=== PATIENT | female | born 1975 | race Caucasian/White ===

== ENCOUNTER 2020-03-09 10:09 | Outpatient (CLI) | payer OTHER, SELFPAY ==
[2020-03-10 19:47] LABS: SARS-CoV-2 RNA PCR Negative
== END 2020-03-09 10:10 | disposition home or self-care (01) ==
PROVIDERS: PCP Internal Medicine; Visit Provider Internal Medicine
DX: Z20.828 Contact with and (suspected) exposure to other viral communicable diseases (principal)
CPT/HCPCS: 87635; C9803; U0003

== ENCOUNTER 2022-09-06 12:00 | Outpatient (CLI) | payer OTHER, SELFPAY ==
--- NOTE | ~2022-09-06 | CT_ITS ---
Non-contrast CT scan of the Abdomen and Pelvis Clinical indication: Painful urination Technique: 2.5 mm axial scans were obtained through the abdomen and pelvis without intravenous or or al contrast. Dose reduction technique was used on this scan by utilizing automated exposure control a nd iterative reconstruction technique. The dose-length product (DLP) was 173.05 mGy-cm. COMPARISON: 08/31/2016 Findings: Images through the lung bases reveal no abnormalities. Both kidneys are somewhat malrotated. Right renal cyst present. There are multiple nonobstructing lef t renal stones measuring up to 7 mm. No definite hydronephrosis. No definite ureteral stones seen. The liver, spleen, pancreas, and adrenals appear normal. Cholecystectomy clips are present. There is no aortic aneurysm. There is no evidence of bowel obstruction. Images through the pelvis were performed. There is no evidence of ascites or lymphadenopathy. Urinary bladder unremarkable. No adnexal mass evident. No ascites. 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 Nonobstructing left renal stones. No hydronephrosis. Reviewed, dictated and finalized at [facility] [place]. 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 Non obstructing left renal stones. No hydronephrosis.
== END 2022-09-06 12:01 | disposition home or self-care (01) ==
LOC: CHSIMG 12:04
PROVIDERS: PCP Internal Medicine; Visit Provider Nurse Practitioner Family
DX: M54.50 Low back pain, unspecified (principal); N20.0 Calculus of kidney; R30.0 Dysuria
CPT/HCPCS: 74176

== ENCOUNTER 2022-10-22 19:21 | Emergency (ER) | payer OTHER, SELFPAY ==
[2022-10-22 19:30] VITALS: BP 115/73; PULSE 81; RESP 14; TEMP 36.4; O2SAT 97
--- NOTE | 2022-10-22 19:33 | ED.WOUNDLAC ---
HPI - Wound/Laceration General Chief Complaint: Wound/Laceration Stated Complaint: Laceration on left index finger Time Seen by Provider: 10/22/22 19:33 Source: patient Mode of arrival: ambulatory Limitations: no limitations History of Present Illness HPI narrative: patient presents with an avulsion injury to the tip of her left index finger while she was cutting fabric, there is no other injuries no numbness or tingling as good range of motion patient states that she is up-to-date with her tetanus. Onset (ago): hour(s) Extremity Location: Left: hand ( Avulsion injury to her left index finger) Place: home Patient tetanus UTD: Yes Context: accidental Related Data Home Medications Medication Instructions Recorded Confirmed No Home Medications 10/22/22 10/22/22 Allergies Allergy/AdvReac Type Severity Reaction Status Date / Time No Known Allergies Allergy Verified 10/22/22 19:29 Review of Systems Review of Systems: All systems reviewed & are unremarkable except as noted in HPI and below PMFSH Past Medical History Medical History Patient denies medical problems Family History Family History Other Diabetes mellitus Family history of elevated blood lipids Hypertension Social History Social History Smoking status: Never smoker Alcohol intake: current Exam Const: General: healthy appearing Nutritional Appearance: well nourished Orientation/consciousness: patient oriented x3 Limitations: no limitations Eyes: Conjunctivae: conjunctivae normal Neck: Neck: normal visual inspection Resp: Effort & Inspection: normal respiratory effort Auscultation: clear to auscultation bilaterally Cardio: Rate: regular rate Rhythm: regular rhythm Skin: Wounds: wounds noted Other: small avulsion injury to the tip of her left index finger Neuro: General: patient oriented x3 and moves all extremities Extrem: General: normal to inspection Psych: Mental Status: mental status grossly normal Affect: normal affect Course Course Emergency Course: gauze applied to stop bleeding, the wound was irrigated and cleaned. Critical Care Time Critical Care Time Critical Care Time: No Discharge Plan Discharge Clinical Impression: Avulsion of skin Patient Disposition: Home, Self-Care Condition: Stable Instructions: Antibiotic Form, Skin Avulsion (ED) Additional Instructions: Continue dressing and follow with primary if symptoms persist or worsen. Prescriptions: No Action No Home Medications Follow-up/Referrals: John Rush MD [Primary Care Provider] - Time of Disposition: 19:36
--- NOTE | 2022-10-22 19:47 | PC.NURSE ---
Pt holding pressure with gauze. No active bleeding noted to gauze at this time. If bleeding should continue will place Surgicel dressing and wrap.
--- NOTE | 2022-10-22 20:03 | PC.NURSE ---
Wound remains with minimal active bleeding. Wound cleansed with dermal wound cleanser. Surgicel and gauze applied. Coban dressing applied and direct pressure applied.
--- NOTE | 2022-10-22 20:23 | PC.NURSE ---
Wound continues to have minimal blood through dressing. Per ERP reapply new Surgicel dressing and rewrap with Coban and evaluate in 15-20 minutes. Dressing applied as directed. Hand elevated. Pt tolerating well and voices no new needs or complaints.
--- NOTE | 2022-10-22 20:47 | PC.NURSE ---
No active bleeding noted to gauze dressing. Coban removed and tape applied. Pt verbalized understanding of direct pressure application if bleeding/oozing should return and to return if unable to stop bleeding with direct pressure application. Pt verbalized understanding.
== END 2022-10-22 20:49 | disposition home or self-care (01) ==
PROVIDERS: Emergency Provider Emergency Medicine; PCP Internal Medicine
DX: S61.211A Laceration without foreign body of left index finger without damage to nail, initial encounter (principal); W45.8XXA Other foreign body or object entering through skin, initial encounter
CPT/HCPCS: 99282

== ENCOUNTER 2023-12-21 15:25 | Outpatient (CLI) | payer OTHER, SELFPAY ==
--- NOTE | ~2023-12-21 | CT_ITS ---
EXAMINATION: CT abdomen pelvis wo con DATE: 12/21/2023 15:37 INDICATION: Hematuria. Kidney stones. TECHNIQUE: Computed tomography (CT) of the abdomen and pelvis was performed without intravenous contr ast. Automated exposure control and iterative reconstruction technique were employed. The dose-length product was 296.68 mGy-cm. COMPARISON: CT abdomen and pelvis 09/06/2022 FINDINGS: The visualized portions of the lung bases demonstrate minimal atelectasis. No pleural effus ion. The heart size is normal. No pericardial effusion. The liver and spleen are normal. There are ch anges of cholecystectomy. The pancreas and adrenal glands are normal. There is fusion of the inferior poles of the kidneys across the midline (horseshoe kidney). There is a 5 mm stone in right kidney. T here is a 2.9 cm cyst in right kidney. There are approximately 5 stones in left kidney measuring up t o 5 mm. There is diverticulosis of the colon without evidence of diverticulitis. There are no dilated loops of bowel. The appendix is normal. There are no pathologically enlarged lymph nodes. There is n o free intraperitoneal fluid. There is mild lumbar spondylosis. There is thoracolumbar dextroscoliosi s. IMPRESSION: 1. Bilateral nonobstructing kidney stones. 2. Horseshoe kidney. Reviewed, dictated and finalized at location A.
== END 2023-12-21 15:26 ==
PROVIDERS: PCP Internal Medicine; Visit Provider Internal Medicine
DX: N20.0 Calculus of kidney (principal); R31.9 Hematuria, unspecified; Q63.1 Lobulated, fused and horseshoe kidney
CPT/HCPCS: 74176

== ENCOUNTER 2024-07-08 07:52 | Outpatient (CLI) | payer OTHER, SELFPAY ==
--- NOTE | ~2024-07-08 | MM_ITS ---
EXAMINATION: MM screening naveen BI w ekta HISTORY: Screening TECHNIQUE: Craniocaudal and mediolateral oblique 3-D tomosynthesis images were obtained and synthetic 2-D images were generated. CAD analysis was submitted and interpreted. COMPARISON: Comparison to multiple prior studies sequentially, with oldest reviewed study dated 01/22. BREAST PARENCHYMAL COMPOSITION: Dense: The breasts are extremely dense, which lowers the sensitivity of mammography. FINDINGS: There is no evidence of suspicious mass, calcification, or architectural distortion to sugg est malignancy in either breast. There has been no suspicious interval change. IMPRESSION: 1. No mammographic evidence of malignancy. 2. Recommend routine screening mammography in one year. BI-RADS Category 1: Negative Reviewed, dictated and finalized at location B.
--- NOTE | ~2024-07-08 | DEXA_ITS ---
Bone Density Report Name: MIMI COTTON Age: 49 Sex: Female Ethnicity: White Date of : 1975 Indication: postmenopausal; Referring Provider: John Rush Study: Bone densitometry was performed. Exam Date: July 08, 2024 Accession number: [id number] Bone Density: Region BMD T-score Z-score Classification AP Spine(L1-L4) 1.055 0.1 0.7 Normal Femoral Neck (Left) 0.735 -1.0 -0.4 Normal Total Hip (Left) 0.944 0.0 0.4 Normal Femoral Neck (Right) 0.733 -1.0 -0.4 Normal Total Hip (Right) 0.865 -0.6 -0.2 Normal Femoral Neck Mean 0.734 -1.0 -0.4 Normal Total Hip Mean 0.904 -0.3 0.1 Normal World Health Organization criteria for BMD impression classify patients as: Normal (T-score at or above -1.0), Osteopenia (T-score between -1.0 and -2.5), or Osteoporosis (T-score at or below -2.5). 10-year Fracture Risk: FRAX not reported because: All T-scores for Spine Total, Hip Total, Femoral Neck at or above -1.0 Clinical Information Provided by Patient: Has used the following medications: Vitamin D Patient maximum height was 66 Menopause Age: 49 No regular weight bearing exercise Does not regularly consume dairy products Drinks caffeinated beverages Onset of menses at age 10 Number of children 3 Impression: The patient has normal bone mass. Discussion: BONE DENSITY IS ABOVE THE MINIMUM DESIRABLE LEVEL AT ALL SKELETAL SITES TESTED. This patient?s bone mineral density is above the minimum desirable level (T-score -1.0 or better) at all sites measured. The patient should follow a healthful lifestyle (good nutrition with adequate calcium and vitamin D, and appropriate weight-bearing exercise). Follow-Up: Consider repeating this study in 5 years or sooner if there is some new clinical indication. Reported by: ARPITA on 07/08/2024 8:26:00 AM. Reviewed, dictated and finalized at location A.
--- OUTSIDE RECORDS SUMMARY | 2024-07-08 07:59 | XMS_ITS | Clinical Summary ---
Author Organization [facility] Address [address] [place] [address] Phone Care Team Providers Care Nuclear Medicine Medical Director Name Role Phone John Rush MD Primary Care Provider + Allergies No known active allergies Medications multivitamin (DAILY-IVANA) tablet Take 1 Tablet by mouth daily. Active MAGNESIUM CITRATE ORAL Take 200 mg by mouth daily. Active drospirenone, contraceptive, (Slynd) 4 mg (28) Tablet Take 1 Tablet (4 mg) by mouth daily. 84 Tablet 3 06/25/2024 Active Active Problems Problem Noted Date Diagnosed Date 11/03/12 11/03/2012 ROR 10/20/2012 Resolved Problems Problem Noted Date Diagnosed Date Resolved Date Labor, GBS-, [id number], no epi, O+ 11/02/2012 11/03/2012 Encounters Date Type Department Care Team Description 07/02/2024 External Device Data ST[facility] ABSTRACTION Provider, Abstract 07/02/2024 External Device Data [facility] ABSTRACTION Provider, Abstract 06/29/2024 External Device Data ST[facility] ABSTRACTION Provider, Abstract 06/28/2024 External Device Data STL ABSTRACTION Provider, Abstract 06/25/2024 2:30 PM LEATHER SHAVER Office Visit [facility] - [address] [address] Ashley Gutierrez DO Dysmenorrhea (Primary Dx); Irregular menses; Persistent sadness; Encounter for BCP ( control pills) initial prescription 06/25/2024 2:00 PM LEATHER SHAVER Ancillary Procedure [address] [address] Ashley Gutierrez, Abnormal uterine bleeding (AUB) 06/25/2024 External Device Data STL ABSTRACTION Provider, Abstract 06/11/2024 External Device Data STL ABSTRACTION Provider, Abstract 05/16/2024 External Device Data STL ABSTRACTION Provider, Abstract 05/15/2024 External Device Data STL ABSTRACTION Provider, Abstract 05/14/2024 External Device Data STL ABSTRACTION Provider, Abstract 05/14/2024 External Device Data STL ABSTRACTION Provider, Abstract 05/11/2024 Results Follow-Up [place] [id number] Ashley Gutierrez DO POC , URINE, CERV/VAG CYTO AGE BASED SCREEN PAP, PATHOLOGY 05/07/2024 11:15 AM LEATHER SHAVER Office Visit [address] [address] Alma Neville, ARTHUR Abnormal uterine bleeding (AUB) (Primary Dx); Screening for cervical cancer 05/07/[address] [address] Ashley Gutierrez DO 05/07/[address] [address] Ashley Gutierrez DO 05/07/[address] [address] Ashley Gutierrez, from Last 3 Months Family History Medical History Relation Name Comments Healthy Brother Hypertension Brother Alcohol abuse Father Healthy Father Heart Attack Father Diabetes Maternal Grandfather Diabetes Maternal Grandmother Hypertension Maternal Grandmother Coronary Artery Disease Maternal Uncle Healthy Mother Diabetes Other grandma and unc le Diabetes Paternal Grandmother Hypertension Paternal Grandmother Relation Name Status Comments Brother Father Maternal Grandfather Maternal Grandmother Maternal Uncle Mother Other Paternal Grandmother Social History Tobacco Use Types Packs/Day Years Used Date Smoking Tobacco: Never Smokeless Tobacco: Never Tobacco Cessation:Counseling Given: Not Answered Alcohol Use Standard Drinks/Week Comments Yes 0 (1 standard drink = 0.6 oz pur e alcohol) socially Comments No Sex and Gender Information Value Date Recorded Sex Assigned at Female 05/03/2024 10:54 AM LEATHER SHAVER Legal Sex Female 1:51 PM CDT Gender Identity Female 05/03/2024 10:54 AM LEATHER SHAVER Sexual Orientation Not on file Occupation Industry Job Start Date Job End Date Not on file Not on file Not on file Not on file Last Filed Vital Signs Vital Sign Reading Time Taken Comments Blood Pressure 120/64 06/25/2024 2:30 PM LEATHER SHAVER Pulse 76 05/06/2019 3:59 PM LEATHER SHAVER Temperature 36.7 C (98 F) 09/10/2020 3:31 PM CDT Respiratory Rate 16 05/06/2019 3:59 PM LEATHER SHAVER Oxygen Saturation 98% 11/03/2012 8:00 AM CDT Inhaled Oxygen Concentration - - Weight 67.9 kg (149 lb 12.8 oz) 06/25/2024 2:30 PM LEATHER SHAVER Height 167.6 cm (5' 6 ) 05/07/2024 11:2 9 AM LEATHER SHAVER Body Mass Index 24.18 05/07/2024 11:29 AM LEATHER SHAVER Plan of Treatment Upcoming Encounters Date Type Department Care Team (Late st Contact Info) Description 07/08/2025 10:30 AM CDT Office Visit [facility] - [address] [place] [phone] [place] [address] [facility] [address] [place] [address] Health Maintenance Due Date Last Done Comments DTAP/TDAP/TD VACCINES (1 - Tdap) 1995 HEPATITIS B VACCINES (1 of 3 - 19+ 3-dose series) 1995 BREAST CANCER SCREENING 2016 COLORECTAL SCREENING 2021 Colorectal Cancer Screening 2021 FIT-DNA Q 3 years 2021 FIT/FOBT Q 1 year 2021 Flex Sig/CT Colonography Q 5 years 2021 INFLUENZA VACCINE (#1) 2023 Preventative Visit- Commercial 04/24/2024 09/10/2020 , 11/13/2018 CERVICAL CANCER SCREENING 05/07/2027 05/07/2024, Procedures Procedure Name Priority Date/Time Associated Diagnosis Comments US PELVIC TRANSVAGINAL Routine 06/25/2024 2:22 PM LEATHER SHAVER Abnormal uterine bleeding (AUB) PATHOLOGY Routine 05/07/2024 12:06 PM LEATHER SHAVER Abnormal uterine bleeding (AUB) CERV/VAG CYTO AGE BASED SCREEN PAP Routine 05/07/2024 12:06 PM LEATHER SHAVER Screening for cervical cancer POC , URINE Routine 05/07/2024 12:05 PM LEATHER SHAVER Abnormal uterine bleeding (AUB) VT ENDOMETRIAL BX W/WO ENDOCERVIX BX W/O DILAT SPX Routine 05/07/2024 11:15 AM LEATHER SHAVER Abnormal uterine bleeding (AUB) Screening for cervical cancer from Last 3 Months Results * US PELVIC TRANSVAGINAL (06/25/2024 2:22 PM LEATHER SHAVER) Anatomical Region Laterality Modality Pelvis Ultrasound 06/25/2024 2:05 PM LEATHER SHAVER Narrative 06/27/2024 7:28 AM LEATHER SHAVER CLINIC PELVIC ULTRASOUND ----- Pat. Name: SYL COTTON Study Date: 06/25/2024 2:05pm Pat. NO: [id number] Referring MD: ASHLEY GUTIERREZ DO Site: [place] [address] [address] Cutter: Lacey Tucker RDMS : 1975 Age: 49 ----- INDICATION ----- Dysfunctional Uterine Bleeding (DUB) CODING ----- Diagnoses N93.8: Other specified abnormal uterine and vaginal bleeding Procedures 62434: Ultrasound non OB transvaginal ASSESSMENT ----- LMP on 06/14/2024. Day of cycle 12 METHOD ----- Transvaginal ultrasound examination UTERUS ----- Long 80 mm x ap 40 mm x tr 59 mm. Vol 97.3 cm Position: anteverted Malformations: arcuate uterus Myometrium: heterogeneous, suspicious for adenomyosis Endometrium: normal . Endometrial thickness, total 3.8 mm Cervix details: contains cystic lesions identified suggesting superficial Nabothian cysts RIGHT OVARY ----- appears normal in size, shape, structure and morphology. Size 18 mm x 7 mm x 11 mm. Vol 0.8 cm LEFT OVARY ----- appears normal in size, shape, structure and morphology. Size 19 mm x 15 mm x 14 mm. Vol 2.1 cm CUL DE SAC ----- No free fluid is seen IMPRESSION ----- Uterus is anteverted, appears arcuate and measures 80 x 40 x 59 mm The myometrium appears heterogeneous suggesting adenomyosis The left uterine vessels appear dilated The endometrium measures 3.8 mm and appears normal The cervix contains Nabothian cysts Right Ovary appears normal in size, shape, structure and morphology Left Ovary appears normal in size, shape, structure and morphology Posterior cul de sac: No free fluid is seen Procedure Note Ashley Gutierrez DO - 06/27/2024 CLINIC PELVIC ULTRASOUND ----- Pat. Name:Anisa COTTON Date:06/25/2024 2:05pm Pat. NO: [id number] MD:ASHLEY GUTIERREZ DO Site:[place] [address] [place] [address]Sonographer:Lacey Tucker RDMS :1975Age:49 ----- INDICATION ----- Dysfunctional Uterine Bleeding (DUB) CODING ----- Diagnoses N93.8: Other specified abnormal uterine andvaginal bleeding Procedures [id number]: Ultrasound non OB transvaginal ASSESSMENT ----- LMP on 06/14/2024. Day of cycle 12 METHOD ----- Transvaginal ultrasound examination UTERUS ----- Long 80 mm x ap 40 mm x tr 59 mm. Vol 97.3 cm Position: anteverted Malformations: arcuate uterus Myometrium: heterogeneous, suspicious for adenomyosis Endometrium: normal . Endometrial thickness, total 3.8 mm Cervix details: contains cystic lesions identified suggesting superficial Nabothian cysts RIGHT OVARY ----- appears normal in size, shape, structure and morphology. Size 18 mm x 7 mm x 11 mm. Vol 0.8 cm LEFT OVARY ----- appears normal in size, shape, structure and morphology. Size 19 mm x 15 mm x 14 mm. Vol 2.1 cm CUL DE SAC ----- No free fluid is seen IMPRESSION ----- Uterus is anteverted, appears arcuate and measures 80 x 40 x 59 mm The myometrium appears heterogeneous suggesting adenomyosis The left uterine vessels appear dilated The endometrium measures 3.8 mm and appears normal The cervix contains Nabothian cysts Right Ovary appears normal in size, shape, structure and morphology Left Ovary appears normal in size, shape, structure and morphology Posterior cul de sac: No free fluid is seen us Ashley Gutierrez DO US ORDERABLES Final Resul t * CERV/VAG CYTO AGE BASED SCREEN PAP (05/07/2024 12:06 PM LEATHER SHAVER) COMMENT (PAP): [facility] [place] Comment: This order for age-based cervical cancer and STI screening follows ACOG guidelines(PB 168, 140, RYJ015). See individual assays for performing site location. CLINICAL INFORMATION [facility] [place] Comment:None given LAST MENSTRUAL PERIOD [facility] [place] Comment:04/24/2024 PREV PAP: [facility] [place] Comment:NONE GIVEN PREV BX: [facility] [place] Comment:NONE GIVEN SOURCE [facility] Comment:Endocervix ADEQUACY: [facility] [place] Comment: Satisfactory for evaluation. Endocervical/transformation zone component present. PAP INTERP [facility] [place] Comment: Cytology Results: Negative for intraepithelial lesion or malignancy. COMMENT (PAP TEST) [facility] [place] Comment: This Pap test has been evaluated with computer assisted technology. BLIND SLAT STAPLING MACHINE OPERATOR: Johnathon [facility] [place] Comment: KHARI, CT(ASCP) CT screening location: [place] [address] [place] [address] EXPLANATORY NOTE [facility] [place] Comment: EXPLANATORY NOTE: The Pap is a screening test for cervical cancer. It is not a diagnostic test and is subject to false negative and false positive results. It is most reliable when a satisfactory sample, regularly obtained, is submitted with relevant clinical findings and history, and when the Pap result is evaluated along with historic and current clinical information. HPV E6/E7 Not Detected Not Detected [facility] [place] Comment: Methodology: Barber Shop Manager-Mediated Amplification This assay detects E6/E7 viral messenger RNA (mRNA) from 14 high-risk HPV types (16,18,31,33,35,39,45,51,52,56,58,59,66,68). Cervical sources are required for HPV testing. If a vaginal source from a patient who has had a total hysterectomy with removal of cervix was submitted, please contact the testing laboratory for alternative testing options. For additional information, please refer to http://education.[employer]/faq/SSB606g1 (This link if provided for information/ educational purposes only.) Test Performed at: [facility] [address] [address] Lio [place] Genital SWAB OF ENDOCERVIX / Unknown 05/07/2024 12:06 PM LEATHER SHAVER 05/08/2024 1:14 AM LEATHER SHAVER Alma Neville NP PATHOLOGY/CYTOLOGY ORDERABLES Final Result Performing Organization Address [facility] Co de Phone Number [facility] [phone] [facility] [address] [address] * PATHOLOGY (05/07/2024 12:06 PM LEATHER SHAVER) CLINICAL INFORMATION [facility] Comment:AUB PATHOLOGIST [facility] Comment: Willie Orellana M.D., Board Certified in Anatomic Pathology and Clinical Pathology. (electronic signature) PATH A SOURCE [facility] Comment:Endometrium, biopsy PATH A GROSS DESCR [facility] Comment: Specimen is received in 10% neutral buffered formalin, labeled with multiple patient identifiers and consists of multiple fragments of soft tissue aggregating to 2.0 x 1.1 x 0.2 cm, irregular in shape and méndez-brown in color. The specimen is entirely submitted in one cassette. Gross exam(s) performed at: [address] [address] Net Repairer: DANAE LANG MD PATH A DIAGNOSIS Que [facility] Comment: Benign early secretory endometrium. No features diagnostic of hyperplasia or malignancy. FASTING: UNKNOWN Test Performed at: [address] [address] Danae Lang Tissue 05/07/2024 12:0 6 PM LEATHER SHAVER 05/08/2024 11:13 PM LEATHER SHAVER Alma Neville NP PATHOLOGY/CYTOLOGY ORDERABLES Final Result Performing Organization Address City/[facility]/ZIP Co de Phone Number [facility] [phone] [place] [address] [place] [address] * POC , URINE (05/07/2024 12:05 PM LEATHER SHAVER) HCG QUAL URINE POC Negative Negative, Indeterminate [place] [address] [email or web address] INTERNAL KIT QC POC Pass Pass [place] [address] [email or web address] KIT LOT NUMBER POC [id number] [place] [address] [address] KIT EXP DATE POC 06/11/2025 [place] [address] EM[address] Urine 05/07/2024 12:0 5 PM LEATHER SHAVER Alma Neville NP POINT OF CARE TESTING Final Re sult Performing Organization Address [facility] Co de Phone Number [place] [address] [address] ROBBINSIA# [id number] [facility] [address] [place] [address] * [place] ENDOMETRIAL BX W/WO ENDOCERVIX BX W/O DILAT SPX (05/07/2024 11:15 AM LEATHER SHAVER) Narrative [place] [address] EM[place] - 05/07/2024 11:15 AM LEATHER SHAVER Alma Neville NP 05/07/2024 12:22 PM Endometrial Biopsy Date/Time: 05/07/2024 11:15 AM Performed by: Alma Neville NP Authorized by: Alma Neville NP Consent: Consent obtained: verbal and written Consent given by: patient Patient agrees, verbalizes understanding, and wants to proceed: yes Indications: Indications: abnormal uterine bleeding Pre-procedure: Urine test: negative Procedure: A bimanual exam was performed: yes Prepped with: Betadine Number of passes: 1 Findings: Cervix: normal Specimen collected: specimen collected and sent to pathology Patient tolerance: tolerated well, no immediate complications Comments: Procedure comments: Pap smear also collected. Alma Neville NP PROCEDURE/MINOR SURGICAL ORDER NATALY Final Result Performing Organization Address [facility] Co de Phone Number [place] [address] [address] ROBBINSIA# [id number] [facility] [address] [place] [address] from Last 3 Months Insurance [employer] CHOICE POS II Advance Directives For more information, please contact: [phone] * Full Code (Latest Code Status on File) Date Activated Date Inactivated Comments 11/03/2012 3:19 AM 11/05/2012 1:55 PM * Full Code Date Activated Date Inactivated Comments 11/02/2012 8:29 PM 11/03/2012 3:19 AM * Full Code Date Activated Date Inactivated Comments 11/02/2012 8:18 PM 11/02/2012 8:29 PM Care Teams Nuclear Medicine Medical Director Relationship Specialty Start Date End Date John Rush MD [address] [place] [address] PCP - General Internal Medicine 05/06/19
--- OUTSIDE RECORDS SUMMARY | 2024-07-08 07:59 | XMS_ITS | Clinical Summary ---
Author Organization [address] Address [address] [place] [address] Care Team Providers Care Manager Ethics Name Role Phone Unknown, Notinfile Primary Care Provider Unavail able Allergies No known active allergies Medications nitrofurantoin monohydrate (MACROBID) 100 mg capsule 4 Active triamcinolone (KENALOG) 0.1 % ointmentIndicati ons:Insect bite of thoracic wall, unspecified whether front or back, initial encounter,Insect bite of left upper extremity, initial encounter,Insect bite of left lower extremity, initial encounter Apply topically 2 (two) times a day for 10 days 30 g 4 Active Active Problems No known active problems Social History Tobacco Use Types Packs/Day Years Used Date Smoking Tobacco: Never Assessed Comments Unknown Sex and Gender Information Value Date Recorded Sex Assigned at Not on file Legal Sex Female 10:43 AM CDT Gender Identity Not on file Sexual Orientation Not on file Obstetrics History Last Filed Vital Signs Vital Sign Reading Time Taken Comments Blood Pressure 118/74 12/25/2023 10:51 AM CDT Pulse 86 12/25/2023 10:51 AM CDT Temperature 36.7 C (98.1 F) 12/25/2023 10:51 AM CDT Respiratory Rate 16 12/25/2023 10:51 AM CDT Oxygen Saturation 100% 12/25/2023 10:51 AM CDT Inhaled Oxygen Concentration - - Weight 65.8 kg (145 lb) 12/25/2023 10:51 AM CDT Height 167.6 cm (5' 6 ) 12/25/2023 10:51 AM CDT Body Mass Index 23.4 12/25/2023 10:51 AM CDT Plan of Treatment Health Maintenance Due Date Last Done Comments Breast Cancer Screening-Mammogram 1975 Colon Cancer Screening-Colonoscopy 1975 Depression Screening 1975 Hepatitis C Screening 1975 Hepatitis B Screening 1994 Regular Well Visit/Exam 18-64 1994 Cervical Cancer Screening 09/10/2021 09/10/2020 Covid-19 Vaccine (4 - 2023-2 5 season) 2023 05/07/2021, 07/21/2020, 06/30/2020 Influenza Vaccine (#1) 2023 DTaP/Tdap/Td Vaccine (2 - Td or Tdap) 12/13/2027 12/12/2017 Pneumococcal vaccine <65 Aged Out No longer eligible based on patient's age to complete this topic Insurance [employer] HMO/POS Care Teams Manager Ethics Relationship Specialty Start Date End Date Unknown, Notinfile PCP - General 12/25/23
--- OUTSIDE RECORDS SUMMARY | 2024-07-08 07:59 | XMS_ITS | Referral Summary ---
Author Organization [address] Address [address] [place] [address] Care Team Providers Care Disability Coordinator Name Role Phone Unknown, Notinfile Primary Care [...] on file Sexual Orientation Not on file Last Filed Vital Signs [...] 12/25/2023 10:51 AM CDT Plan of Treatment Not on file Insurance [employer] [place] HMO/POS Care Teams Disability Coordinator Relationship Specialty Start Date End Date Unknown, Notinfile PCP - General 12/25/23
== END 2024-07-08 07:53 | disposition home or self-care (01) ==
LOC: CHSIMG 07:54
PROVIDERS: PCP Internal Medicine; Visit Provider Internal Medicine
DX: Z12.31 Encounter for screening mammogram for malignant neoplasm of breast (principal); Z78.0 Asymptomatic menopausal state
CPT/HCPCS: 77063; 77067; 77080

== ENCOUNTER 2024-07-22 06:19 | Day surgery (SDC) | payer OTHER, SELFPAY ==
--- OUTSIDE RECORDS SUMMARY | 2024-07-22 06:51 | XMS_ITS | Clinical Summary ---
Author Organization [facility] Address [address] [place] [address] Phone Care Team Providers Care Manager Heavy Duty Name Role Phone John Rush MD Primary [...] Date Diagnosed Date Resolved Date Labor, GBS-, [id number], no epi, O+ 11/02/2012 11/03/2012 Encounters Date Type Department Care Team Description 07/10/2024 External Device Data STL ABSTRACTION Provider, Abstract 07/02/2024 External Device Data STL ABSTRACTION Provider, Abstract 07/02/2024 External Device Data STL ABSTRACTION Provider, Abstract 06/29/2024 External Device Data STL ABSTRACTION Provider, Abstract 06/28/2024 External Device Data STL ABSTRACTION Provider, Abstract 06/25/2024 2:30 PM OBSTETRICS GYNECOLOGY MD Office Visit [facility] - [address] [place] [id number] Ashley Watson DO Dysmenorrhea (Primary Dx); Irregular menses; Persistent sadness; Encounter for BCP ( control pills) initial prescription 06/25/2024 2:00 PM OBSTETRICS GYNECOLOGY MD Ancillary Procedure [address] [id number] Ashley Watson, Abnormal uterine bleeding (AUB) 06/25/2024 External Device Data STL ABSTRACTION Provider, Abstract 06/11/2024 External Device Data STL ABSTRACTION Provider, Abstract 05/16/2024 External Device Data STL ABSTRACTION Provider, Abstract 05/15/2024 External Device Data STL ABSTRACTION Provider, Abstract 05/14/2024 External Device Data STL ABSTRACTION Provider, Abstract 05/14/2024 External Device Data STL ABSTRACTION Provider, Abstract 05/11/2024 Results Follow-Up [address] [phone] Ashley Watson DO POC , URINE, CERV/VAG CYTO AGE BASED SCREEN PAP, PATHOLOGY 05/07/2024 11:15 AM OBSTETRICS GYNECOLOGY MD Office Visit [address] [address] Alma Neville, ARTHUR Abnormal uterine bleeding (AUB) (Primary Dx); Screening for cervical cancer 05/07/[address] [id number] Ashley Watson DO 05/07/[address] [address] Ashley Watson DO 05/07/[address] [address] Ashley Watson, from Last 3 Months Family History Medical [...] Sex Assigned at Female 05/03/2024 10:54 AM OBSTETRICS GYNECOLOGY MD Legal Sex Female 1:51 PM CDT Gender Identity Female 05/03/2024 10:54 AM OBSTETRICS GYNECOLOGY MD Sexual Orientation Not on file Occupation Industry Job Start Date Job End Date Not on file Not on file Not on file Not on file Last Filed Vital Signs Vital Sign Reading Time Taken Comments Blood Pressure 120/64 06/25/2024 2:30 PM OBSTETRICS GYNECOLOGY MD Pulse 76 05/06/2019 3:59 PM OBSTETRICS GYNECOLOGY MD Temperature 36.7 C (98 F) 09/10/2020 3:31 PM CDT Respiratory Rate 16 05/06/2019 3:59 PM OBSTETRICS GYNECOLOGY MD Oxygen Saturation 98% 11/03/2012 8:00 AM CDT Inhaled Oxygen Concentration - - Weight 67.9 kg (149 lb 12.8 oz) 06/25/2024 2:30 PM OBSTETRICS GYNECOLOGY MD Height 167.6 cm (5' 6 ) 05/07/2024 11:2 9 AM OBSTETRICS GYNECOLOGY MD Body Mass Index 24.18 05/07/2024 11:29 AM OBSTETRICS GYNECOLOGY MD Plan of Treatment Upcoming Encounters Date Type Department Care Team (Late st Contact Info) Description 07/08/2025 10:30 AM CDT Office Visit [facility] - [address] [facility] [address] [address] [place] [address] [facility] [address] [place] [address] Health Maintenance Due Date Last [...] Preventative Visit- Commercial 04/24/2024 09/10/2020 , 11/13/2018 HPV/Cotest (30-65) 09/10/2025 09/10/2020 CERVICAL CANCER SCREENING 05/07/2027 PAP SMEAR 05/07/2027 05/07/2024, 09/10/2020 PAP SMEAR 05/07/2027 05/07/2024, 09/10/2020 Procedures Procedure Name Priority Date/Time Associated Diagnosis Comments US PELVIC TRANSVAGINAL Routine 06/25/2024 2:22 PM OBSTETRICS GYNECOLOGY MD Abnormal uterine bleeding (AUB) PATHOLOGY Routine 05/07/2024 12:06 PM OBSTETRICS GYNECOLOGY MD Abnormal uterine bleeding (AUB) CERV/VAG CYTO AGE BASED SCREEN PAP Routine 05/07/2024 12:06 PM OBSTETRICS GYNECOLOGY MD Screening for cervical cancer POC , URINE Routine 05/07/2024 12:05 PM OBSTETRICS GYNECOLOGY MD Abnormal uterine bleeding (AUB) OR ENDOMETRIAL BX W/WO ENDOCERVIX BX W/O DILAT SPX Routine 05/07/2024 11:15 AM OBSTETRICS GYNECOLOGY MD Abnormal uterine bleeding (AUB) Screening for cervical cancer CERV/VAG CYTO SCREEN PAP W/HPV Routine 09/10/2020 3:51 PM CDT Encounter for gynecological examination with abnormal finding from Last 3 Months or Most Recently Relevant to Health Maintenance Results * US PELVIC TRANSVAGINAL (06/25/2024 2:22 PM OBSTETRICS GYNECOLOGY MD) Anatomical Region Laterality Modality Pelvis Ultrasound 06/25/2024 2:05 PM OBSTETRICS GYNECOLOGY MD Narrative 06/27/2024 7:28 AM OBSTETRICS GYNECOLOGY MD CLINIC PELVIC ULTRASOUND ----- Pat. Name: SYL COTTON Study Date: 06/25/2024 2:05pm Pat. NO: [id number] Referring MD: ASHLEY WATSON DO Site: [place] [address] Boxing Instructor: Lacey Tucker RDMS : 1975 Age: 49 ----- INDICATION ----- Dysfunctional Uterine Bleeding (DUB) CODING ----- Diagnoses N93.8: Other specified abnormal uterine and vaginal bleeding Procedures 45513: Ultrasound non OB transvaginal ASSESSMENT ----- LMP [...] free fluid is seen Procedure Note Ashley Watson DO - 06/27/2024 [facility] PELVIC ULTRASOUND ----- Pat. Name:Anisa COTTON Date:06/25/2024 2:05pm Pat. NO: [id number] MD:ASHLEY WATSON DO Site:[place] [address]Sonographer:Lacey Tucker RDMS :1975Age:49 ----- INDICATION ----- Dysfunctional Uterine Bleeding (DUB) CODING ----- Diagnoses N93.8: Other specified abnormal uterine andvaginal bleeding Procedures 41670: Ultrasound non OB transvaginal ASSESSMENT ----- LMP [...] No free fluid is seen us Ashley Watson DO US ORDERABLES Final Resul t * CERV/VAG CYTO AGE BASED SCREEN PAP (05/07/2024 12:06 PM OBSTETRICS GYNECOLOGY MD) COMMENT (PAP): [facility] Comment: This order for age-based cervical cancer and STI screening follows ACOG guidelines(PB 168, 140, UMK729). See individual assays for performing site location. CLINICAL INFORMATION [facility] Comment:None given LAST MENSTRUAL PERIOD [facility] Comment:04/24/2024 PREV PAP: [facility] Comment:NONE GIVEN PREV BX: [facility] Comment:NONE GIVEN SOURCE [facility] Comment:Endocervix ADEQUACY: [facility] Comment: Satisfactory for evaluation. Endocervical/transformation zone component present. PAP INTERP [facility] Comment: Cytology Results: Negative for intraepithelial lesion or malignancy. COMMENT (PAP TEST) [facility] Comment: This Pap test has been evaluated with computer assisted technology. PUG MACHINE OPERATOR: Johnathon est [facility]arian[facility] Vázquez Comment: KHARI, CT(ASCP) CT screening location: [place] [address] [place] [address] EXPLANATORY NOTE Que Atlantis ComputingMarianela Vázquez Comment: EXPLANATORY NOTE: The Pap is a [...] information. HPV E6/E7 Not Detected Not Detected [facility] Comment: Methodology: Psych Specialist-Mediated Amplification This assay detects E6/E7 viral messenger RNA (mRNA) from 14 high-risk HPV types (16,18,31,33,35,39,45,51,52,56,58,59,66,68). Cervical sources are required for HPV testing. If a vaginal source from a patient who has had a total hysterectomy with removal of cervix was submitted, please contact the testing laboratory for alternative testing options. For additional information, please refer to http://education.Pure Focus/faq/UMX311a7 (This link if provided for information/ educational purposes only.) Test [facility]formed [facility] [address] [address] [address] Lio HAMILTON Genital SWAB OF ENDOCERVIX / Unknown 05/07/2024 12:06 PM OBSTETRICS GYNECOLOGY MD 05/08/2024 1:14 AM OBSTETRICS GYNECOLOGY MD Alma Neville NP PATHOLOGY/CYTOLOGY ORDERABLES Final Result Performing Organization Address City/[facility]/ZIP Co de Phone Number [facility] [phone] [facility] [address] [address] [address] * PATHOLOGY (05/07/2024 12:06 PM OBSTETRICS GYNECOLOGY MD) CLINICAL INFORMATION [facility] Comment:AUB [...] in one cassette. Gross exam(s) performed at: [address] [address] Control Manager: DANAE HERNANDEZ MD PATH A DIAGNOSIS Que [facility] Comment: Benign early secretory endometrium. No features diagnostic of hyperplasia or malignancy. FASTING: UNKNOWN Test Performed at: [address] [address] Danae Hernandez Tissue 05/07/2024 12:0 6 PM OBSTETRICS GYNECOLOGY MD 05/08/2024 11:13 PM OBSTETRICS GYNECOLOGY MD Alma Neville NP PATHOLOGY/CYTOLOGY ORDERABLES Final Result [facility] [phone] [facility] [address] [facility] [address] * POC , URINE (05/07/2024 12:05 PM OBSTETRICS GYNECOLOGY MD) HCG QUAL URINE POC Negative Negative, Indeterminate [place] [address] EM[address] INTERNAL KIT QC POC [place] [address] Eli NutritionMIMI KIT LOT NUMBER POC [id number] [place] [address] RevalesioNERLY KIT EXP DATE POC 06/11/2025 [place] [address] EMILY Urine 05/07/2024 12:0 5 PM OBSTETRICS GYNECOLOGY MD us Alma Neville NP POINT OF CARE TESTING Final Re sult Performing Organization Address [facility] [place] Co de Phone Number [place] [address] EM[place] CLIA# [id number] [facility] EMILY [address] [address] * OR ENDOMETRIAL BX W/WO ENDOCERVIX BX W/O DILAT SPX (05/07/2024 11:15 AM OBSTETRICS GYNECOLOGY MD) Narrative [place] [address] EMILY - 05/07/2024 11:15 AM OBSTETRICS GYNECOLOGY MD Alma Neville NP 05/07/2024 12:22 PM Endometrial [...] Comments: Procedure comments: Pap smear also collected. us Alma Neville NP PROCEDURE/MINOR SURGICAL ORDER NATALY Final Result Performing Organization Address [facility] [place]/[facility] Co de Phone Number [place] [address] EMILY CLIA# [id number] [address] [address] [place] [address] * CERV/VAG CYTO SCREEN PAP W/HPV (09/10/2020 3:51 PM CDT) CASE REPORT Gynecologic Cytology Report Case: [id number] Authorizing Provider: Ashley Watson DO Collected: 09/10/2020 03:51 PM Ordering Location: [facility] Received: 09/12/2020 07:38 AM [place] [address] [facility] Screen: Tamela Juarez Specimen: LB PAP TP AND HPV PROT, Endocervix 09/16/2020 3:22 PM CDT [facility] Hand Polisher Specimen Adequacy Satisfactory for evaluation, endocervical/chen sformation zone component present 09/16/2020 3:22 PM CDT [facility] Hand Polisher Interpretation Negative for intraepithelial lesion or malignancy 09/16/2020 3:22 PM CDT [facility] Hand Polisher Educational Note 09/16/2020 3:22 PM CDT [facility] Comment:The Pap test is a sc reening test used to aid in the detection of cervical cancer and its precursors. It should not be the sole means by which malignant and premalignant lesions are diagnosed. Both false negative and false positive results may occur. Results must be interpreted in the context of historic and current clinical information. EMBEDDED IMAGE 09/16/2020 3:22 PM CDT [facility] Genital SWAB OF ENDOCERVIX / Unknown Collection / Unknown 09/10/2020 3:51 PM CDT 09/12/2020 7:38 AM CDT Ashley Watson DO PATHOLOGY/CYTOLOGY ORDERABL ES Final Result [facility] CLIA# [id number] [address] [place] [address] from Last 3 Months or Most Recently Relevant to Health Maintenance Insurance [employer] CHOICE POS II Advance Directives For more information, please contact: [phone] * Full Code (Latest Code Status on File) Date Activated Date Inactivated Comments 11/03/2012 3:19 AM 11/05/2012 1:55 PM * Full Code Date Activated Date Inactivated Comments 11/02/2012 8:29 PM 11/03/2012 3:19 AM * Full Code Date Activated Date Inactivated Comments 11/02/2012 8:18 PM 11/02/2012 8:29 PM Care Teams Manager Heavy Duty Relationship Specialty Start Date End Date John Rush MD [address] [place] [address] PCP - General Internal Medicine 05/06/19
--- OUTSIDE RECORDS SUMMARY | 2024-07-22 06:51 | XMS_ITS | Clinical Summary ---
Author Organization [address] Address [address] [place] [address] Care Team Providers Care Visiting Housekeeper Name Role Phone Unknown, Notinfile Primary Care [...] patient's age to complete this topic Insurance [employer] H[employer]/POS Care Teams Visiting Housekeeper Relationship Specialty Start Date End Date Unknown, Notinfile PCP - General 12/25/23
--- OUTSIDE RECORDS SUMMARY | 2024-07-22 06:51 | XMS_ITS | Referral Summary ---
Author Organization [address] Address [address] [place] [address] Care Team Providers Care Hatchery Laborer Name Role Phone Unknown, Notinfile Primary Care [...] of Treatment Not on file Insurance [employer] [place] HMO/POS Care Teams Hatchery Laborer Relationship Specialty Start Date End Date Unknown, Notinfile PCP - General 12/25/23
[2024-07-22 07:08] VITALS: BP 110/72; PULSE 79; RESP 14; TEMP 36.3; O2SAT 99
[2024-07-22] MEDS: LACTATED RINGERS 1,000 ML 150 ML IV CONT (07:29)
--- NOTE | 2024-07-22 08:20 | P.HP_ITS ---
H&P: HPI History of Present Illness Date/Time: 07/22/24 08:20 Chief Complaint: Screening for colorectal cancer Narrative: this is a 49-year-old woman who presents for colonoscopy. She has never had a colonoscopy before. She denies any hematochezia or melena. She denies family history of colon cancer. Review of Systems Review of Systems: All systems reviewed & are unremarkable except as noted in HPI and below Constitutional: Constitutional: Denies chills, Denies fever(s), Denies headache(s) and Denies weight loss Eyes: Eyes: Denies change in vision ENT: Denies dizziness, Denies headache(s), Denies neck mass and Denies throat swelling Cardiovascular: Cardiovascular: Denies chest pain, Denies lightheadedness and Denies dyspnea Respiratory: Respiratory: Denies cough, Denies dyspnea and Denies wheezing Gastrointestinal: Gastrointestinal: Denies abdominal pain, Denies change in bowel habits, Denies nausea and Denies vomiting Genitourinary: Genitourinary: Denies hematuria and Denies dysuria Musculoskeletal: Musculoskeletal: Reports as per HPI Integumentary/Breasts: Skin/Breast: Reports as per HPI Neurologic: Denies dizziness and Denies headache(s) Allergic/Immunologic: Allergic/Immunologic: Denies throat swelling and Denies wheezing PMFSH Past Medical History Medical History Patient denies medical problems Family History Family History Other Diabetes mellitus Family history of elevated blood lipids Hypertension Social History Social History Smoking status: Never smoker Alcohol intake: current Alcohol use details: rarely Substance use: never Substance use type: does not use Living arrangements: with family Spiritual care concerns: No Meds Home Medications and Allergies Home Medications ?Medication ?Instructions ?Recorded ?Confirmed ?Type drospirenone (contraceptive) 4 mg 4 mg PO DAILY 07/10/24 07/22/24 History (28) tablet (Slynd) Allergies Allergy/AdvReac Type Severity Reaction Status Date / Time No Known Allergies Allergy Verified 07/22/24 07:01 Vital Signs Vital Signs - 24 hr 07/22/24 07:08 Temperature 97.3 F L Pulse Rate 79 Respiratory Rate 14 Blood Pressure 110/72 Pulse Oximetry 99 Oxygen Delivery Room Air Exam Const: General: no acute distress and alert Orientation/consciousness: patient oriented x3 HENMT: Head: normocephalic and atraumatic Ears: hearing grossly normal bilaterally Face/Nose/Sinus: Normal nares present Mouth: Yes Normal oral and palatal mucosa present Eyes: Periorbital: periorbital findings normal Sclera: sclerae normal EOM: EOMs intact bilaterally Neck: Neck: normal visual inspection, no lymphadenopathy and trachea midline Chest: Chest palpation & inspection: normal inspection of the chest Resp: Effort & Inspection: normal respiratory effort Auscultation: clear to auscultation bilaterally Cardio: Jugular venous distension: no JVD Rate: regular rate Rhythm: regular rhythm Heart sounds: S1 normal heart sound present and S2 normal heart sound present Peripheral pulses: Peripheral pulses 2+ throughout GI: Inspection: normal to inspection GI Palp: Yes Soft to palpation, No Tenderness to palpation present (GI), No Guarding due to palpation present (GI) and No Rebound tenderness present Percussion: Yes normal to percussion Auscultation: normal bowel sounds : General: Yes no CVA tenderness Back/Spine/Pelvis: Back: no CVA tenderness Neuro: General: patient oriented x3, no focal motor deficits and CN's II-XI intact bilaterally Cognition (Neuro): normal cognition Speech: normal spe ech Motor exam (neuro): 5/5 motor strength present throughout Extrem: General: capillary refill normal and no clubbing, cyanosis or edema Assessment and Plan Assessment and plan (1) Screen for colon cancer: Code(s): Z12.11 - Encounter for screening for malignant neoplasm of colon Status: Acute Assessment and Plan: I have recommended colonoscopy. I have discussed the procedure, risks, benefits, and alternatives. Questions were answered. Patient is agreeable to proceed.
--- NOTE | 2024-07-22 08:23 | P.PNAN_ITS ---
Anes - Initial Pre Proc Eval Procedure: Operation Date: 07/22/24 08:30 Proposed Procedures p Screening Colonoscopy - Larry Diop DO Date/Time: 07/22/24 08:23 Surgeon: Larry Diop DO Pre Op Diagnosis: Neoplasm Screening Patient Data Age: 49 Gender: F Height: 1.68 m Weight: 66.1 kg Last Vital Signs Temp 36.3 C L 07/22/24 07:08 Pulse 79 07/22/24 07:08 Resp 14 07/22/24 07:08 BP 110/72 07/22/24 07:08 Pulse Ox 99 07/22/24 07:08 O2 Del Method Room Air 07/22/24 07:08 Allergies Allergy/AdvReac Type Severity Reaction Status Date / Time No Known Allergies Allergy Verified 07/22/24 07:01 Home Medications ?Medication ?Instructions ?Recorded ?Confirmed ?Type drospirenone (contraceptive) 4 mg 4 mg PO DAILY 07/10/24 07/22/24 History (28) tablet (Slynd) Patient hx anesthesia problems: none Family hx anesthesia problems: none Results Review: All pre-operative results and documents have been reviewed as part of the pre- operative evaluation. [facility] Past Medical History Medical History Patient denies medical problems Surgical History Surgical History (Updated 07/22/24 @ 08:23 by Herbie Gallegos MD) History of cholecystectomy Family History Family History Other Diabetes mellitus Family history of elevated blood lipids Hypertension Social History Social History Smoking status: Never smoker Alcohol intake: current Alcohol use details: rarely Substance use: never Substance use type: does not use Living arrangements: with family Spiritual care concerns: No Anes - Eval Final PreProcedure Day of Procedure 07/22/24 08:23 Patient weight: normal Heart: regular rate and rhythm Lungs: clear to auscultation Airway: Mallampati scale class 1 Neurological: alert and oriented Last oral intake: >/= 8 hours ASA classification: I Emergent: no Anesthetic plan: proceed Anesthesia type and monitoring: general GIVS and standard monitoring Results Review: All pre-operative results and documents have been reviewed as part of the pre- operative evaluation. Informed Consent: The patient's anesthetic plan and its attendant risks and benefits were discussed with the patient/family/POA. Questions were solicited and answers provided to the satisfaction of the patient/family/POA.
--- NOTE | 2024-07-22 08:23 | SUR.PREOP ---
Pt unable to give urine sample for pre-op urine test before colonoscopy at [facility]. Pt tried multiple times and unable to go. Dr. Gallegos notified who states for urine test to be canceled. Dr. Gallegos to bedside to speak with pt regarding not doing urine test before procedure/anesthesia. Pt agrees to proceed with procedure.
[2024-07-22 08:47] VITALS: BP 99/63; PULSE 69; RESP 14; O2SAT 100
[2024-07-22 08:57] VITALS: BP 118/80; PULSE 67; RESP 16; O2SAT 100
--- NOTE | 2024-07-22 08:57 | WPDANESPN ---
Anes - Prog Note Post-Op Date/Time: 07/22/24 08:57 Cardiovascular status: normal Respiratory status: normal Airway patency: baseline Mental status: baseline Post-Op hydration status: normal Vital Signs: Last Vital Signs Temp 36.3 C L 07/22/24 07:08 Pulse 79 07/22/24 07:08 Resp 14 07/22/24 07:08 BP 110/72 07/22/24 07:08 Pulse Ox 99 07/22/24 07:08 O2 Del Method Room Air 07/22/24 07:08 Pain Score (VAS): 0/10 I/O: Intake & Output 07/21/24 07/22/24 07/22/24 23:59 07:59 15:59 Intake Total 900 Balance 900 Patient Feedback: Patient satisfied with anesthetic care.
[2024-07-22 09:07] VITALS: BP 115/79; PULSE 68; RESP 16; O2SAT 99
== END 2024-07-22 09:30 | disposition home or self-care (01) ==
PROVIDERS: PCP Internal Medicine; Visit Provider Surgery
PROC: 0DJD8ZZ Inspection of Lower Intestinal Tract, Via Natural or Artificial Opening Endoscopic (ICD-10-PCS; CPT 45378; principal; 2024-07-22 08:30)
DX: Z12.11 Encounter for screening for malignant neoplasm of colon (principal); K57.30 Diverticulosis of large intestine without perforation or abscess without bleeding
CPT/HCPCS: 45378